=== PATIENT | female | born 1965 | race Caucasian/White ===

== ENCOUNTER 2017-03-14 08:19 | Observation (INO) | payer MEDICAID, OTHER ==
[~2017-03-14] VITALS: Ht 157.5 cm; Wt 93.7 kg
[~2017-03-14 08:19] MED LIST: COLC1CAP3 PO; PARO10TA2 PO; ULTR50TA5 PO
[2017-03-14] MEDS: SODIUM CHLOR 0.9% 1000 ML INJ 1,000 ML IV SCH ×2 (11:29→16:35)
[2017-03-14] MEDS ORDERED: SENNOSIDES 8.6 MG TAB PO PRN (11:30)
[2017-03-14] MEDS ORDERED: NALOXONE HCL 0.4 MG/ML AMP IV PRN (11:30)
[2017-03-14] MEDS ORDERED: SODIUM CHLORIDE 0.9% FLUSH 10 ML FLUSH IV FLUSH PRN (11:30)
[2017-03-14 12:00] VITALS: BP 107/67; PULSE 63; RESP 20; TEMP 98; O2SAT 97
[2017-03-14] MEDS ORDERED: SODIUM CHLOR 0.9% 1000 ML INJ 1,000 ML IV ONE ×2 (14:00)
[2017-03-14] MEDS ORDERED: traMADol HCL 50 MG TAB PO PRN (14:00)
--- NOTE | 2017-03-14 14:05 | HHI.HP ---
[facility] Primary Care Physician No Primary Care Physician Admission Diagnosis Diagnoses: Chief Complaint: Abdominal pain Travel History International Travel<30 Days: No Contact w/Intl Traveler <30 Da: No Traveled to Known Affected Are: No History of Present Illness Patient is a 52-year-old female with a history of gastric bypass. She does have recurrent abdominal pain in the epigastrium worse when she eats fatty foods. Described as cramping with some associated nausea and non-bloody or bilious vomiting. Patient did have this episode and has also come to emergency for evaluation of this. Is in normal pain for her but this time it was increased in intensity and increased in length. Patient did have a history of cholecystectomy and expiratory laparotomy and a gastric bypass. She admits she gets increased abdominal discomfort in her all she eats inappropriate meals for her gastric bypass diet. She did do this recently and thinks that the pain as a result of that. She came to the emergency room was found to have elevated transaminases. She notes a history of hepatitis C as exposure to needles as a young adult and believes that she may have hepatitis C. Patient's pain has been moderate and improved. She does also drink quite a bit of caffeinated beverages at least 6 "monster "drinks daily. She has been transferred for observation unit for further evaluation Review of Systems Constitutional: DENIES: Diaphoretic episodes, Fatigue, Fever, Weight gain, Weight loss, Chills, Dizziness, Change in appetite, Night Sweats Endocrine: DENIES: Abnorml menstrual pattern, Heat/cold intolerance, Polydipsia , Polyuria, Polyphagia Eyes: DENIES: Blurred vision, Eye pain Ears, nose, mouth, throat: DENIES: Tinnitus, Hearing loss, Vertigo, Nasal discharge, Oral lesions, Throat pain, Hoarseness, Ear Pain, Running Nose, Epistaxis, Sinus Pain, Toothache, Odynophagia Respiratory: DENIES: Apneas, Cough, Snoring, Wheezing, Hemoptysis, Sputum production, Shortness of breath Cardiovascular: DENIES: Chest pain, Palpitations, Syncope, Dyspnea on Exertion , PND, Lower Extremity Edema, Orthopnea, Claudication Gastrointestinal: COMPLAINS OF: Abdominal pain, Nausea, Vomiting Genitourinary: DENIES: Abnormal vaginal bleeding, Dysmenorrhea, Dyspareunia, Sexual dysfunction, Urinary frequency, Urinary incontinence, Urgency, Hematuria , Dysuria, Nocturia, Vaginal discharge Musculoskeletal: DENIES: Joint pain, Muscle aches, Stiffness, Joint Swelling, Back pain, Neck pain Integumentary: DENIES: Abnormal pigmentation, Pruritus, Rash, Nail changes, Breast masses, Breast skin changes, Nipple discharge Hematologic/lymphatic: DENIES: Bruising, Lymphadenopathy Immunologic/allergic: DENIES: Eczema, Urticaria Neurologic: DENIES: Abnormal gait, Headache, Localized weakness, Paresthesias, Seizures, Speech Problems, Tremor, Poor Balance Psychiatric: DENIES: Anxiety, Confusion, Mood changes, Depression, Hallucinations, Agitation, Suicidal Ideation, Homicidal Ideation, Delusions Except as stated in HPI: all other systems reviewed are Neg Past Family Social History Past Medical History Anxiety Past Surgical History Cholecystectomy, expiratory laparotomy, gastric bypass Reported Medications Reviewed in the medical record Allergies: Coded Allergies: ibuprofen (Verified Allergy, Severe, 03/14/17) latex (Verified Allergy, Severe, 03/14/17) codeine (Unverified Allergy, Unknown, 03/14/17) VOMITING morphine (Unverified Allergy, Unknown, 03/14/17) VOMITING Active Ordered Medications Reviewed in the medical record Family History Mother has diabetes type 2, son has type 1 diabetes Sister has reproductive cancer Physical Exam Vital Signs Vital Signs Date Time Temp Pulse Resp B/P (MAP) Pulse Ox O2 Delivery O2 Flow Rate FiO2 03/14/17 12:00 98.0 63 20 107/67 (80) 97 Physical Exam GENERAL: This is a well-nourished, well-developed patient, in no apparent distress. SKIN: No rashes, ecchymoses or lesions. Cool and dry. HEAD: Atraumatic. Normocephalic. No temporal or scalp tenderness. EYES: Pupils equal round and reactive. Extraocular motions intact. No scleral icterus. No injection or drainage. ENT: Nose without bleeding, purulent drainage or septal hematoma. Throat without erythema, tonsillar hypertrophy or exudate. Uvula midline. Airway patent. NECK: Trachea midline. No JVD or lymphadenopathy. Supple, nontender, no meningeal signs. CARDIOVASCULAR: Regular rate and rhythm without murmurs, gallops, or rubs. RESPIRATORY: Clear to auscultation. Breath sounds equal bilaterally. No wheezes , rales, or rhonchi. GASTROINTESTINAL: Abdomen soft, right upper quadrant is tender, nondistended. No hepato-splenomegaly, or palpable masses. No guarding. MUSCULOSKELETAL: Extremities without clubbing, cyanosis, or edema. No joint tenderness, effusion, or edema noted. No calf tenderness. Negative Homans sign bilaterally. NEUROLOGICAL: Awake and alert. Cranial nerves II through XII intact. Motor and sensory grossly within normal limits. Five out of 5 muscle strength in all muscle groups. Normal speech. Laboratory Labs reviewed from [place] of ER 03/[address] abdomen pelvis reviewed by me is unremarkable for acute intra-abdominal findings Course Transferred from [place] emergency room Caprinargelia VTE Risk Assessment Caprini VTE Risk Assessment: No/Low Risk (score <= 1) Caprini Risk Assessment Model Point Value = 1 Point Value = 2 Point Value = 3 Point Value = 5 Age 41-60 Minor surgery BMI > 25 kg/m2 Swollen legs Varicose veins or History of unexplained or recurrent spontaneous Oral contraceptives or hormone replacement Sepsis (< 1 month) Serious lung disease, including pneumonia (< 1 month) Abnormal pulmonary function Acute myocardial infarction Congestive heart failure (< 1 month) History of inflammatory bowel disease Medical patient at bed rest Age 61-74 Arthroscopic surgery Major open surgery (> 45 min) Laparoscopic surgery (> 45 min) Malignancy Confined to bed (> 72 hours) Immobilizing plaster cast Central venous access Age >= 75 History of VTE Family history of VTE Factor V Leiden Prothrombin [id number] Lupus anticoagulant Anticardiolipin antibodies Elevated serum homocysteine Heparin-induced thrombocytopenia Other congenital or acquired thrombophilia Stroke (< 1 month) Elective arthroplasty Hip, pelvis, or leg fracture Acute spinal cord injury (< 1 month) Prophylaxis Regimen Total Risk Factor Score Risk Level Prophylaxis Regimen 0-1 Low Early ambulation 2 Moderate Order ONE of the following: *Sequential Compression Device (SCD) *Heparin 5000 units SQ BID 3-4 Higher Order ONE of the following medications: *Heparin 5000 units SQ TID *Enoxaparin/Lovenox 40 mg SQ daily (WT < 150 kg, CrCl > 30 mL/min) *Enoxaparin/Lovenox 30 mg SQ daily (WT < 150 kg, CrCl > 10-29 mL/min) *Enoxaparin/Lovenox 30 mg SQ BID (WT < 150 kg, CrCl > 30 mL/min) AND/OR *Sequential Compression Device (SCD) 5 or more Highest Order ONE of the following medications: *Heparin 5000 units SQ TID (Preferred with Epidurals) *Enoxaparin/Lovenox 40 mg SQ daily (WT < 150 kg, CrCl > 30 mL/min) *Enoxaparin/Lovenox 30 mg SQ daily (WT < 150 kg, CrCl > 10-29 mL/min) *Enoxaparin/Lovenox 30 mg SQ BID (WT < 150 kg, CrCl > 30 mL/min) AND *Sequential Compression Device (SCD) Assessment and Plan Problem List: (1) Abdominal pain ICD Code: R10.9 - Unspecified abdominal pain Plan: Likely related to acute liver inflammation Continue IV hydration and follow trend workup in progress (2) Transaminitis ICD Code: R74.0 - Nonspecific elevation of levels of transaminase and lactic acid dehydrogenase [LDH] Plan: Continue with workup, patient says she was exposed to hepatitis C Continue trending transaminases Ultrasound liver pending if no improvement will notify GI (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
[2017-03-14] MEDS: ONDANSETRON HCL 4 MG/2 ML VIAL IV PUSH PRN ×2 (14:46→21:01)
[2017-03-14 16:00] VITALS: BP 121/69; PULSE 84; RESP 18; TEMP 97.8; O2SAT 99
[2017-03-14] MEDS: PANTOPRAZOLE SOD 40 MG DELAYED RELEASE TAB PO SCH (16:35)
[2017-03-14 20:00] VITALS: BP 100/60; PULSE 66; RESP 18; TEMP 98.5; O2SAT 95
[2017-03-14] MEDS: SODIUM CHLORIDE 0.9% FLUSH 10 ML FLUSH IV FLUSH SCH (21:01)
[2017-03-14] MEDS: DOCUSATE SODIUM 50 MG/SENNA 8.6 MG TAB PO SCH (21:01)
[2017-03-15] VITALS: BP 108/61; PULSE 52; RESP 18; TEMP 98.6; O2SAT 95
[2017-03-15] MEDS: SODIUM CHLOR 0.9% 1000 ML INJ 1,000 ML IV SCH ×2 (02:33→03:30)
[2017-03-15 06:58] LABS: CHLORIDE 112 MEQ/L (98-107); POTASSIUM 4.1 MEQ/L (3.5-5.1); SODIUM (NA) 142 MEQ/L (136-145)
[2017-03-15 07:07] LABS: ANION GAP 6 MEQ/L (5-15); BICARBONATE 24.2 MEQ/L (21.0-32.0); BLOOD UREA NITROGEN 6 MG/DL (7-18)
[2017-03-15 07:10] LABS: ALT (GPT) 512 U/L (10-53); AST (GOT) 344 U/L (15-37); GLOMERULAR FILTRATION RATE 105 ML/MIN (>89)
[2017-03-15 07:11] LABS: TOTAL BILIRUBIN ADULT 0.6 MG/DL (0.2-1.0)
[2017-03-15 07:12] LABS: ALKALINE PHOSPHATASE 162 U/L (45-117)
[2017-03-15 08:00] VITALS: BP 96/60; PULSE 54; RESP 20; TEMP 96.6; O2SAT 98
--- NOTE | 2017-03-15 08:39 | RADRPT ---
EXAM DATE/TIME: 03/15/2017 07:58 [facility] COMPARISON: CT ABDOMEN & PELVIS W/O CONTRAST, March 14, 2017, 6:02. INDICATIONS : Increased lab values. MEDICAL HISTORY : Abdominal pain. Nausea. Vomiting. SURGICAL HISTORY : Cholecystectomy. Gastric bypass. ENCOUNTER: Initial ACUITY: 1 day PAIN SCORE: 2/10 LOCATION: Bilateral upper quadrant MEASUREMENTS: LIVER: 16.1 cm length COMMON DUCT: 7 mm RIGHT KIDNEY: 10.9 x 4.1 x 5.5 cm SPLEEN: 10.1 cm length FINDINGS: LIVER: Normal echotexture without focal lesion or ductal dilatation. COMMON DUCT: No intraluminal mass or stone visualized. GALLBLADDER: Cholecystectomy. PANCREAS: The visualized portions are within normal limits. RIGHT KIDNEY: No hydronephrosis, stone or mass. SPLEEN: No focal lesion. CONCLUSION: Normal examination. Daniel Andrews MD on March 15, 2017 at 8:37 Board Certified Radiologist. This report was verified electronically.
[2017-03-15] MEDS: SODIUM CHLORIDE 0.9% FLUSH 10 ML FLUSH IV FLUSH SCH (09:00)
[2017-03-15] MEDS: DOCUSATE SODIUM 50 MG/SENNA 8.6 MG TAB PO SCH (09:01)
[2017-03-15] MEDS: PANTOPRAZOLE SOD 40 MG DELAYED RELEASE TAB PO SCH (09:01)
[2017-03-15] MEDS ORDERED: PILL SPLITTER OTHER PRN (10:45)
[2017-03-15] MEDS ORDERED: PARoxetine HCL 20 MG TAB PO SCH (11:00)
--- NOTE | 2017-03-15 11:28 | HHI.DCPOC ---
Discharge Care Plan Diagnosis: (1) Transaminitis Goals to Promote Your Health * To prevent worsening of your condition and complications * To maintain your health at the optimal level Directions to Meet Your Goals Take your medications as prescribed Follow your dietary instruction Follow activity as directed Keep your appointments as scheduled Take your immunizations and boosters as scheduled If your symptoms worsen call your PCP, if no PCP go to Urgent Care Center or Emergency Room Smoking is Dangerous to Your Health. Avoid second hand smoke Call the 24-hour hour crisis hotline for domestic abuse at Mila Baca MD Mar 15, 2017 11:28
--- NOTE | 2017-03-15 11:28 | HHI.DS ---
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 She does have recurrent abdominal pain in the epigastrium worse when she eats fatty foods. Described as cramping with some associated nausea and non-bloody or bilious vomiting. Patient did have this episode and has also come to emergency for evaluation of this. Is in normal pain for her but this time it was increased in intensity and increased in length. Patient did have a history of cholecystectomy and expiratory laparotomy and a gastric bypass. She admits she gets increased abdominal discomfort in her all she eats inappropriate meals for her gastric bypass diet. She did do this recently and thinks that the pain as a result of that. She came to the emergency room was found to have elevated transaminases. She notes a history of hepatitis C as exposure to needles as a young adult and believes that she may have hepatitis C. Patient's pain has been moderate and improved. She does also drink quite a bit of caffeinated beverages at least 6 "monster "drinks daily. She has been transferred for observation unit for further evaluation CBC/BMP: 03/15/17 0623 Significant Findings Laboratory Tests Test 03/15/17 06:23 Blood Urea Nitrogen 6 MG/DL (7-18) Albumin 2.8 GM/DL (3.4-5.0) Calcium Level 7.9 MG/DL (8.5-10.1) Alkaline Phosphatase 162 U/L (45-117) Aspartate Amino Transf (AST/SGOT) 344 U/L (15-37) Alanine Aminotransferase (ALT/SGPT) 512 U/L (10-53) Chloride Level 112 MEQ/L (98-107) Imaging Last Impressions Liver Ultrasound 03/15/17 0000 Signed Impressions: Service Date/Time: Wednesday, March 15, 2017 07:58 - CONCLUSION: Normal examination. Daniel Andrews MD PE at Discharge GENERAL: This is a well-nourished, well-developed patient, in no apparent distress. CARDIOVASCULAR: Regular rate and rhythm without murmurs, gallops, or rubs. RESPIRATORY: Clear to auscultation. Breath sounds equal bilaterally. No wheezes , rales, or rhonchi. GASTROINTESTINAL: Abdomen soft, non-tender, nondistended. Normal active bowel sounds MUSCULOSKELETAL: Extremities without clubbing, cyanosis, or edema. NEURO: Alert & Oriented x4 to person, place, time, situation. Moves all ext x4 Pt update on day of discharge Patient seen today in follow-up for abdominal pain with elevated LFTs and a known history of hepatitis C. Patient also has been anxious and on Paxil. Patient reports improvement in symptoms and would like to go home. Patient has been advised to have repeat LFTs which she has refused. She will be discharged to follow-up with her primary care physician Hospital Course Was seen and treated for abdominal discomfort which resolved. She has elevated LFTs with a history of hepatitis C which. She will follow-up with her primary care physician. Liver ultrasound was unremarkable. Patient did refuse further workup and further lab testing and would like to go home she has been discharged Pt Condition on Discharge: Good Discharge Disposition: Discharge Home Discharge Time: <= 30 minutes Discharge Instructions DIET: Follow Instructions for: As Tolerated, No Restrictions Activities you can perform: Regular-No Restrictions Follow up Referrals: PCP Follow-up - 1 Week Continued Medications: Paroxetine (Paroxetine) 10 Mg Tab 10 MG PO DAILY, #30 TAB 0 Refills Mila Baca MD Mar 15, 2017 11:28
== END 2017-03-15 12:29 | disposition home or self-care (01) ==
LOC: PHEDDLT 08:19 → PH3A 10:56
PROVIDERS: ADMIT Hospitalist; ATTEND Hospitalist
DX: R10.13 Epigastric pain (principal); R74.0 Nonspecific elevation of levels of transaminase and lactic acid dehydrogenase [LDH]; F15.10 Other stimulant abuse, uncomplicated; Z90.49 Acquired absence of other specified parts of digestive tract; Z98.84 Bariatric surgery status; Z20.5 Contact with and (suspected) exposure to viral hepatitis
CPT/HCPCS: 71010; 74176; 76705; 80053; 80307; 81001; 83690; 84484; 84702; 85025; 93005; 96361; 96374; 96375; 96376; 99285; G0378; J2405; J3010; J7030; 80074

== ENCOUNTER 2017-11-09 05:37 | Observation (INO) | payer MEDICAID, OTHER ==
[~2017-11-09] VITALS: Ht 157.5 cm; Wt 100.5 kg
[~2017-11-09 05:37] MED LIST changes: -COLC1CAP3 PO; +DOXY0.02; +HUMIBIDDM PO; +IPRASOL INH; +MEDR4PAK PO; +PAXI10TA8 PO; +PRED1 PO; -ULTR50TA5 PO; +ZITHTAB PO
[2017-11-09] MEDS ORDERED: PRED5TAB PO (05:50)
[2017-11-09] MEDS ORDERED: AMOX500C PO (05:50)
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
[2017-11-09] MEDS ORDERED: VENTAER INH (05:51)
[2017-11-09 05:54] VITALS: BP 139/74; PULSE 54; TEMP 97.6; O2SAT 97
[2017-11-09] MEDS ORDERED: IOHEXOL 350 MG/ML 10 ML VIAL (for RAD DIAG) IVCONTRAST ONE (06:35)
[2017-11-09 06:55] VITALS: BP 103/57; PULSE 56; RESP 18; O2SAT 98
[2017-11-09] MEDS ORDERED: ASPIRIN 81 MG CHEW TAB PO ONE (07:00)
[2017-11-09] MEDS ORDERED: NITROGLYCERIN 2% OINT 1 GM PACKET TOP ONE (07:00)
[2017-11-09] MEDS ORDERED: NITROGLYCERIN 0.4 MG SL 25 TABS/BTL SL ONE (07:00)
--- NOTE | 2017-11-09 07:23 | RADRPT ---
EXAM DATE/TIME: 11/09/2017 06:02 [facility] COMPARISON: CT PULMONARY ANGIOGRAM, January 12, 2017, 14:05. INDICATIONS : Chest pain. Heaviness in chest. IV CONTRAST: 75 cc Omnipaque 350 (iohexol) IV RADIATION DOSE: 20.05 CTDIvol (mGy) MEDICAL HISTORY : Hernia, hiatal. SURGICAL HISTORY : Gastric bypass. Cholecystectomy. ENCOUNTER: Initial ACUITY: 1 day PAIN SCALE: 4/10 LOCATION: Bilateral chest TECHNIQUE: Volumetric scanning of the chest was performed using a pulmonary embolism protocol MIP images were re constructed. Using automated exposure control and adjustment of the mA and/or kV according to patien t size, radiation dose was kept as low as reasonably achievable to obtain optimal diagnostic quality images. DICOM format image data is available electronically for review and comparison. Follow-up recommendations for detected pulmonary nodules are based at a minimum on nodule size and pa tient risk factors according to Fleischner Society Guidelines. FINDINGS: PULMONARY ARTERIES: No filling defects are seen in the pulmonary arteries through the segmental level. LUNGS: There is a calcified granuloma in the left upper lung. There is mild increased density seen at the an terior medial right upper lung. There is minimal subpleural atelectasis seen at the posterior lower l obes. PLEURAE: There is no pleural thickening or pleural effusion. MEDIASTINUM: There is good visualization of the great vessels of the middle mediastinum. No evidence of mediastin al or hilar adenopathy/mass. MUSCULOSKELETAL: Within normal limits for patient age. MISCELLANEOUS: The visualized upper abdominal organs demonstrate no acute abnormality. CONCLUSION: 1. No pulmonary embolus. 2. Mild area of atelectasis or consolidation of the anterior medial right upper lobe. Sanchez Caldwell MD on November 09, 2017 at 7:19 Board Certified Radiologist. This report was verified electronically.
[2017-11-09 08:51] VITALS: BP 110/52; PULSE 62; RESP 15; TEMP 96.4; O2SAT 95
== END 2017-11-09 11:06 | disposition left against medical advice (07) ==
LOC: PHED 05:37 → PHEDA 06:40 → PH3A 08:24
PROVIDERS: ADMIT Hospitalist; ATTEND Hospitalist
DX: J98.11 Atelectasis (principal); R07.9 Chest pain, unspecified; R06.00 Dyspnea, unspecified; R79.1 Abnormal coagulation profile; J45.909 Unspecified asthma, uncomplicated; F40.240 Claustrophobia; F41.9 Anxiety disorder, unspecified; R51 Headache; Z98.84 Bariatric surgery status
CPT/HCPCS: 71046; 71275; 80053; 84484; 85025; 85379; 93005; 99285; G0378; Q9967